=== PATIENT | female | born 1950 | race Caucasian/White ===

== ENCOUNTER → 2024-01-04 14:21 | Outpatient (REF) | payer MEDICARE, OTHER, SELFPAY | LOC: WDC 14:21 | PROVIDERS: ATTENDING PHYSICIAN Family Medicine | DX: Z12.31 Encounter for screening mammogram for malignant neoplasm of breast (principal) | CPT/HCPCS: 77063; 77067 ==

== ENCOUNTER → 2024-09-09 13:28 | Outpatient (REF) | payer MEDICARE, OTHER, SELFPAY | LOC: RAD 13:28 | PROVIDERS: ATTENDING PHYSICIAN Family Medicine | DX: Z78.0 Asymptomatic menopausal state (principal) | CPT/HCPCS: 77080 ==

== ENCOUNTER → 2025-06-25 13:00 | Outpatient (REF) | payer MEDICARE, OTHER, SELFPAY ==
[2025-06-25 13:22] LABS: Hematocrit 45.3 % (37.0-47.0); Hemoglobin 15.3 g/dL (12.0-16.0); Mean Corp Hgb Conc. 33.8 g/dL (33.0-37.0); Mean Corpuscular Volume 90.4 fL (81.0-99.0); Nucleated Red Blood Cells % 0 %; Platelet Count 299 10^3/uL (130-400); Red Cell Dist. Width 13.2 % (11.5-14.5)
[2025-06-25 13:53] LABS: ALT (SGPT) 40 U/L (0-35); AST (SGOT) 30 U/L (14-36); Albumin 5.0 g/dl (3.5-5.0); Alkaline Phosphatase 76 U/L (38-126); Amylase 91 U/L (30-110); Blood Urea Nitrogen 23 mg/dl (7-17); Calcium 10.6 mg/dl (8.4-10.2); Carbon Dioxide 26 mmol/L (22-30); Chloride 100 mmol/L (98-107); Glucose 153 mg/dl (70-99); Lipase 156 U/L (23-300); Potassium 4.6 mmol/L (3.5-5.1); Sodium 132 mmol/L (135-145); Total Protein 7.7 g/dl (6.3-8.2); eGFR > 60.00
== END ==
LOC: REG 13:00
PROVIDERS: ATTENDING PHYSICIAN Family Medicine
DX: R10.13 Epigastric pain (principal); R10.33 Periumbilical pain; R11.0 Nausea
CPT/HCPCS: 36415; 80053; 82150; 82248; 83690; 85025

== ENCOUNTER → 2025-06-26 10:16 | Outpatient (REF) | payer MEDICARE, OTHER, SELFPAY | LOC: RAD 10:16 | PROVIDERS: ATTENDING PHYSICIAN Family Medicine | DX: R10.13 Epigastric pain (principal); R10.33 Periumbilical pain; R31.0 Gross hematuria; M54.50 Low back pain, unspecified | CPT/HCPCS: 74177; Q9967 ==

== ENCOUNTER 2025-07-02 06:26 | Day surgery (SDC) | payer MEDICARE, OTHER, SELFPAY ==
[2025-07-02] VITALS (8 sets, daily range): BP systolic 144–184; BP diastolic 58–78; BMI 28.3
[2025-07-02] MEDS: NORMOSOL-R/PLASMALYTE-A 1000 IV (10:44)
[2025-07-02] MEDS: ULTRAM 50 MG PO (16:53)
--- NOTE | 2025-07-02 18:18 | W.IMMPOSTOP ---
Surgical Immed Post Op Note
-
Primary Surgeon: Christa
Assisting Surgeon: NA
Pre-op Diagnosis: Nephrolithiasis, gross hematuria
Post-op Diagnosis: Same
Procedure Performed: Cystoscopy, bilateral retrograde pyelogram, right ureteroscopy, laser lithotripsy, stone extraction, stent placement
Anesthesia Type: GETT
Specimen / Cultures: right renal stones for stone analysis
Estimated Blood Loss: 5 cc
Complications: none
Operative Findings: see op report
== END 2025-07-02 17:22 | disposition home or self-care (01) ==
LOC: SDS 06:26
PROVIDERS: ATTENDING PHYSICIAN Student in an Organized Health Care Education/Training Program
DX: N20.0 Calculus of kidney (principal); R31.0 Gross hematuria
CPT/HCPCS: 52356; 74420; 76000; 82365; 93005; A4300; C1769; C1894; C2617

== ENCOUNTER → 2025-08-18 19:13 | Outpatient (REF) | payer MEDICARE, OTHER, SELFPAY | LOC: WDC 19:13 | PROVIDERS: ATTENDING PHYSICIAN Family Medicine | DX: Z12.31 Encounter for screening mammogram for malignant neoplasm of breast (principal) | CPT/HCPCS: 77063; 77067 ==